=== PATIENT | female | born 1975 | race Two or more races ===

== ENCOUNTER 2017-12-28 07:27 | Emergency (ER) | payer OTHER ==
[~2017-12-28] VITALS: Ht 160 cm; Wt 72.6 kg
--- NOTE | 2017-12-28 07:40 | NUR ---
PT BIB [facility] WITH A C/O LOWER BACK PAIN SINCE LAST NIGHT. PT TOOK TYLENOL LAST NIGHT AND NOTHING THIS AM. PT IS UNABLE TO MOVE FROM LYING POSITION AT THIS TIME. PT IS NORMALLY AMBULATORY. PT STATED THAT THE BACK PAIN RADIATES DOWN BLE. PT IS ON THE MONITOR AND CONTINUOUS PULSE OX.
[2017-12-28 07:44] VITALS: BP 128/78
[2017-12-28] MEDS ORDERED: ACETAMINOPHEN ES 500 MG TABLET ONE (07:46)
[2017-12-28] MEDS ORDERED: KETOROLAC TROMETHAMINE INJ 60 MG/2 ML VIAL IM ONE ×2 (07:46→08:00)
[2017-12-28] MEDS ORDERED: DIAZEPAM 10 MG TABLET ONE (07:53)
[2017-12-28] MEDS ORDERED: DIAZEPAM 5 MG/ML 2 ML DISP.SYRIN IM ONE (08:00)
[2017-12-28] MEDS ORDERED: DIAZEPAM 10 MG TABLET PO ONE (08:00)
[2017-12-28] MEDS ORDERED: ACETAMINOPHEN ES 500 MG TABLET PO ONE (08:00)
--- NOTE | 2017-12-28 10:45 | NUR ---
Pt ambulatory with a steady gait.
--- NOTE | 2017-12-28 10:56 | NUR ---
Patient discharged to home in stable condition. Written and verbal after care instructions given. Patient verbalizes understanding of instruction.
== END 2017-12-28 10:58 | disposition home or self-care (01) ==
LOC: ER 07:28
DX: M54.5 Low back pain (principal); Z88.0 Allergy status to penicillin
CPT/HCPCS: 72070; 96372; 99284; A4606 ×2; J1885; Z7610 ×2

== ENCOUNTER 2018-10-13 03:18 | Emergency (ER) | payer OTHER ==
[~2018-10-13] VITALS: Ht 165.1 cm; Wt 74.8 kg
[2018-10-13 03:24] VITALS: BP 121/74
== END 2018-10-13 03:47 | disposition left against medical advice (07) ==
LOC: ER 03:20
DX: L29.9 Pruritus, unspecified (principal); Z88.0 Allergy status to penicillin
CPT/HCPCS: Z7502

== ENCOUNTER 2024-04-15 17:50 | Emergency (ER) | payer OTHER ==
[~2024-04-15] VITALS: Ht 165.1 cm; Wt 78.6 kg
[2024-04-15 18:45] LABS: BASOPHILS % (AUTO) 0.7 % (0.0-2.0); HEMATOCRIT 36 % (33-45); HEMOGLOBIN 11.8 g/dL (11.5-14.8); LYMPHOCYTES # (AUTO) 1.5 K/uL (0.8-4.8); LYMPHOCYTES % (AUTO) 49.2 % (20.0-44.0); MEAN CORPUSCULAR HEMOGLOBIN 31 PG (26.0-33.0); MEAN CORPUSCULAR HGB CONC 33 g/dl (31.0-36.0); MEAN CORPUSCULAR VOLUME 95 fL (82-100); MONOCYTES # (AUTO) 0.2 K/uL (0.1-1.30); MONOCYTES % (AUTO) 6.2 % (2.0-12.0); NEUTROPHILS # (AUTO) 1.3 K/uL (1.8-8.9); NEUTROPHILS % (AUTO) 42.9 % (43.0-81.0); PLATELET COUNT (AUTO) 159 K/uL (150-450); RED BLOOD CELL COUNT(AUTO) 3.76 MIL/uL (4.0-5.2); RED CELL DISTRIBUTION WIDTH 16.8 % (11.5-15.0); WHITE BLOOD COUNT (AUTO) 3.1 K/uL (4.3-11.0)
[2024-04-15 18:51] LABS: CALCIUM, SERUM 8.6 mg/dL (8.5-10.1); CREATININE 0.8 mg/dL (0.6-1.3); POTASSIUM 4.1 mmol/L (3.5-5.1)
[2024-04-15 18:57] LABS: ALBUMIN 3.1 g/dL (3.4-5.0); BILIRUBIN,DIRECT 0.2 mg/dL (0.0-0.2); BILIRUBIN,TOTAL 0.5 mg/dL (0.2-1.0); TOTAL PROTEIN, SERUM 6.4 g/dL (6.4-8.2)
[2024-04-15] MEDS: IV NS 0.9% 1,000 ML BAG IV ONE (18:59)
[2024-04-15] MEDS: ONDANSETRON HCL/PF 4 MG/2 ML VIAL IVP ONE (19:00)
[2024-04-15 19:25] LABS: APPEARANCE,URINE Clear (CLEAR); BILIRUBIN,URINE SMALL (NEGATIVE); BLOOD, URINE Negative Ery/uL (NEGATIVE); COLOR,URINE YELLOW (YELLOW); KETONES,URINE Trace mg/dL (NEGATIVE); LEUKOCYTE ESTERASE ,URINE Trace (NEGATIVE); NITRITE, URINE Negative (NEGATIVE); PROTEIN,URINE Negative (NEGATIVE); UGLUCOSE Negative (NEGATIVE)
[2024-04-15] MEDS: METHADONE HCL 10 MG TABLET PO SCH (19:49)
[2024-04-15 20:03] LABS: ADD URINE CULTURE YES; BACTERIA,URINE Moderate /HPF (None Seen); SQUAMOUS EPITHELIAL CELL,UR Moderate /HPF (None Seen)
[2024-04-16 02:33] VITALS: BP 124/74; TEMP 98.2; O2SAT 98
== END 2024-04-15 20:45 | disposition home or self-care (01) ==
LOC: ER 17:55
DX: R10.32 Left lower quadrant pain (principal); R07.81 Pleurodynia; Z88.0 Allergy status to penicillin; Z88.5 Allergy status to narcotic agent; Z90.49 Acquired absence of other specified parts of digestive tract; Z85.43 Personal history of malignant neoplasm of ovary
CPT/HCPCS: 99285; 74176; 96374; 96361; 71100; 85025; 80048; 83690; 80076; 81001; 36415; J2405; J7030